=== PATIENT | female | born 1955 | race American Indian/Alaskan Native ===

== ENCOUNTER 2016-11-01 12:26 | Outpatient (CLI) | payer BC ==
[2016-11-01 12:48] LABS: Basophils % (Auto) 0.5 % (0.0-1.8); Eosinophils % (Auto) 4.2 % (0.0-4.3); Hemoglobin 11.6 gm/dl (10.1-14.3); Mean Corpuscular HGB Conc 32 % (30-34); Mean Corpuscular Hemoglobin 27 pg (28-32); Mean Corpuscular Volume 85 fl (79-97); Platelet Count 158 K/mm3 (140-440); Red Blood Count 4.23 M/mm3 (3.65-5.03); Red Cell Distribution Width 14.8 % (13.2-15.2); White Blood Count 5.5 K/mm3 (4.5-11.0)
[2016-11-01 13:13] LABS: Alanine Aminotransferase 20 units/L (7-56); Albumin 4.1 g/dL (3.9-5); Albumin/Globulin Ratio 1.6 %; Alkaline Phosphatase 79 units/L (35-129); BUN/Creatinine Ratio 18.88; Bilirubin,Total 0.3 mg/dL (0.1-1.2); Blood Urea Nitrogen 17 mg/dL (7-17); Carbon Dioxide 26 mmol/L (22-30); Chloride 105.5 mmol/L (98-107); Glucose 141 mg/dL (65-100); Potassium 4.4 mmol/L (3.6-5.0); Sodium 146 mmol/L (137-145); Total Protein 6.6 g/dL (6.3-8.2)
[2016-11-01 13:14] LABS: Anion Gap 19 mmol/L
[2016-11-01 13:32] LABS: Cholesterol 161 mg/dL (50-199); HDL Cholesterol 42 mg/dL (40-59); LDL Cholesterol,Direct 89 mg/dL (50-130); Triglycerides 150 mg/dL (2-149)
--- NOTE | 2016-11-01 13:45 | XRay Report ---
RIGHT CLAVICLE: The bony architecture is intact without evidence of fracture or dislocation. No significant soft tissue abnormality is seen. IMPRESSION: Normal right clavicle.
== END 2016-11-01 12:27 | disposition home or self-care (01) ==
LOC: XRAY 12:26
PROVIDERS: ATTEND Internal Medicine
DX: E11.9 Type 2 diabetes mellitus without complications (principal); I10 Essential (primary) hypertension; M95.8 Other specified acquired deformities of musculoskeletal system; E78.5 Hyperlipidemia, unspecified
CPT/HCPCS: 36415; 80053; 80061; 82043; 85025

== ENCOUNTER 2016-12-25 16:44 | Outpatient (CLI) | payer BC ==
--- NOTE | 2016-12-26 07:54 | Magnetic Resonance Report ---
MRI LUMBAR SPINE WITHOUT CONTRAST HISTORY: Back pain, lumbar radiculopathy. TECHNIQUE: axial T1, T2. sagittal T1,T2, STIR. COMPARISON: 09/07/10. FINDINGS: The conus terminates at T12. No signal abnormality or mass. The cauda equina is within normal limits. 2-3 mm anterolisthesis of L3 with respect to L4 is unchanged. The remaining lumbar vertebra are normal in alignment. The posterior elements are in appropriate relationship. Mild disc desiccation and narrowing at the lowest 3 levels and mild diffuse facet arthropathy are again noted and not significantly changed. The paraspinal soft tissues are unremarkable. L1-2: No significant abnormality. L2-3: No significant abnormality. L3-4: Mild diffuse posterior bulging disc is again identified. No annular tear or herniation. Mild hypertrophy ligamentum flavum and moderate facet hypertrophy is again noted. This results in mild to moderate central canal narrowing measuring 7 mm in AP dimension. Bilateral neural foraminal narrowing is estimated at 25%. No high-grade neural foraminal stenosis. L4-5: A mild diffuse posterior bulging disc is identified. Focal midline annular tear is again noted and unchanged. No herniation. There is borderline central canal narrowing measuring 9.1 mm in AP dimension. Less than 25% bilateral neural foraminal narrowing. L5-S1: A mild diffuse posterior bulging disc is identified. Focal midline annular tear is again noted and unchanged. No herniation or central canal stenosis. No high-grade neural foraminal narrowing. IMPRESSION: Lumbar spondylosis as outlined above. There is perhaps minimal progression of degenerative change at the lowest 3 levels when comparing to the exam from 2009. No new acute process is appreciated.
== END 2016-12-25 16:45 | disposition home or self-care (01) ==
LOC: MRI 16:44
PROVIDERS: ATTEND Orthopaedic Surgery
DX: M54.16 Radiculopathy, lumbar region (principal)
CPT/HCPCS: 72148

== ENCOUNTER 2017-03-19 10:12 | Outpatient (CLI) | payer BC ==
--- NOTE | 2017-03-19 11:09 | Mammography Report ---
Bilateral mammogram: No previous studies available. CAD study utilized. Findings: Predominance of adipose tissue bilaterally. No mass or microcalcification. Focal dense asymmetry measuring 3 mm in diameter subareolar area left breast. Normal axilla. Impression: Focal dense asymmetry subareolar area left breast. Recommend spot magnification and if necessary sonographic examination. BI-RADS CATEGORY: 0 = Needs additional imaging evaluation ACR BI-RADS MAMMOGRAPHIC CODES: 0 = Needs additional imaging evaluation; 1 = Negative; 2 = Benign; 3 = Probably benign; 4 = Suspicious; 5 = Malignant; 6 = Known biopsy-proven malignancy COMMENT: 1. Dense breast tissue, i.e., adenosis, fibrocystic changes, etc., may obscure an underlying neoplasm. 2. Approximately 10% of cancers are not detected with mammography. 3. A negative mammography report should not delay biopsy if a clinically suspicious mass is present. COMMENT: Patient follow-up letters are generated in [employer].
== END 2017-03-19 10:13 | disposition home or self-care (01) ==
LOC: MAMMO 10:12
PROVIDERS: ATTEND Internal Medicine
DX: Z12.31 Encounter for screening mammogram for malignant neoplasm of breast (principal)
CPT/HCPCS: 77067; G0202

== ENCOUNTER 2017-04-09 11:46 | Outpatient (CLI) | payer BC ==
--- NOTE | 2017-04-09 12:31 | Mammography Report ---
Spot compression magnification of the focal asymmetry subareolar area left breast: Findings: There is complete effacement noted of the density seen on mammogram. No mass is identified. No microcalcification. Impression: Benign findings. Annual followup with mammogram recommended. BI-RADS CATEGORY: 2 = Benign ACR BI-RADS MAMMOGRAPHIC CODES: 0 = Needs additional imaging evaluation; 1 = Negative; 2 = Benign; 3 = Probably benign; 4 = Suspicious; 5 = Malignant; 6 = Known biopsy-proven malignancy COMMENT: 1. Dense breast tissue, i.e., adenosis, fibrocystic changes, etc., may obscure an underlying neoplasm. 2. Approximately 10% of cancers are not detected with mammography. 3. A negative mammography report should not delay biopsy if a clinically suspicious mass is present.
== END 2017-04-09 11:47 | disposition home or self-care (01) ==
LOC: MAMMO 11:46
PROVIDERS: ATTEND Internal Medicine
DX: R92.8 Other abnormal and inconclusive findings on diagnostic imaging of breast (principal); I10 Essential (primary) hypertension
CPT/HCPCS: G0206-LT

== ENCOUNTER 2017-06-28 09:11 | Outpatient (CLI) | payer BC ==
[2017-06-28 10:06] LABS: Alanine Aminotransferase 16 units/L (7-56); Albumin 4.2 g/dL (3.9-5); Albumin/Globulin Ratio 1.2 %; Alkaline Phosphatase 77 units/L (35-129); Anion Gap 19 mmol/L; Blood Urea Nitrogen 17 mg/dL (7-17); Calcium 9.1 mg/dL (8.4-10.2); Carbon Dioxide 25 mmol/L (22-30); Chloride 104.8 mmol/L (98-107); Glucose 161 mg/dL (65-100); Potassium 4.1 mmol/L (3.6-5.0); Sodium 145 mmol/L (137-145); Total Protein 7.6 g/dL (6.3-8.2)
== END 2017-06-28 09:12 | disposition home or self-care (01) ==
LOC: LAB 09:11
PROVIDERS: ATTEND Internal Medicine
DX: I10 Essential (primary) hypertension (principal)
CPT/HCPCS: 36415; 80053

== ENCOUNTER 2017-09-17 06:28 | Day surgery (SDC) | payer BC ==
[~2017-09-17 06:28] MED LIST: BSS ONE; TOBRADEX ONE
[2017-09-17] MEDS ORDERED: DUOVISC VISCOELASTIC INTRAOCULA ONE (07:00)
[2017-09-17] MEDS ORDERED: MYDRIACYL OU ONE (07:37)
[2017-09-17] MEDS ORDERED: CYCLOGYL OD ONE (07:37)
[2017-09-17 07:46] VITALS: BP 124/91
[2017-09-17] MEDS: MYDRIACYL OU SCH ×3 (08:00→08:10)
[2017-09-17] MEDS: NEOFRIN OU SCH ×3 (08:00→08:10)
[2017-09-17] MEDS: VIGAMOX OU SCH ×3 (08:00→08:10)
[2017-09-17] MEDS: CYCLOGYL OD SCH ×3 (08:00→08:10)
--- NOTE | 2017-09-17 08:23 | Anesthesia Day of Surgery ---
Anesthesia Day of Surgery - Day of Surgery Patient Examined: Yes Patient H&P Reviewed: Yes Patient is NPO: Yes Beta Blockers: Yes (on schedule)
--- NOTE | 2017-09-17 08:23 | Anesthesia Consultation ---
Anesthesia Consult and Med Hx Date of service: 09/17/17 - Airway Anesthetic Teeth Evaluation: Good ROM Head & Neck: Adequate Mental/Hyoid Distance: Adequate Mallampati Class: Class II Intubation Access Assessment: Probably Good - Pulmonary Exam CTA: Yes - Cardiac Exam Cardiac Exam: RRR - Pre-Operative Health Status ASA Pre-Surgery Classification: ASA3 Proposed Anesthetic Plan: MAC - Pre-Anesthesia Comment Pre-Anesthesia Comments: hypercholesterolemia - Pulmonary Hx Asthma: Yes - Cardiovascular System Hx Hypertension: Yes (OVER 15Y) Hx Cardia Arrhythmia: Yes (paroxysmal A fib) - Central Nervous System Hx Back Pain: Yes - Endocrine Hx Non-Insulin Dependent Diabetes: Yes - Hematic Hx Sickle Cell Disease: Yes (TRAIT) - Other Systems Hx Cancer: No - Additional Comments Anesthesia Medical History Comments: H/O DVT
[2017-09-17] MEDS ORDERED: MARCAINE 0.5% 30 ML INFILTRATI ONE (09:16)
== END 2017-09-17 06:29 | disposition home or self-care (01) ==
LOC: OR 06:28
PROVIDERS: ATTEND Specialist
DX: H26.9 Unspecified cataract (principal); Z53.9 Procedure and treatment not carried out, unspecified reason; K21.9 Gastro-esophageal reflux disease without esophagitis; E11.9 Type 2 diabetes mellitus without complications; I10 Essential (primary) hypertension; E78.00 Pure hypercholesterolemia, unspecified; I48.0 Paroxysmal atrial fibrillation; J45.909 Unspecified asthma, uncomplicated; Z98.49 Cataract extraction status, unspecified eye; Z86.718 Personal history of other venous thrombosis and embolism; Z90.710 Acquired absence of both cervix and uterus; Z98.890 Other specified postprocedural states; Z96.611 Presence of right artificial shoulder joint
CPT/HCPCS: 82962

== ENCOUNTER 2017-10-01 07:56 | Outpatient (CLI) | payer BC ==
[2017-10-01] MEDS ORDERED: LEXISCAN IV ONE ×2 (12:28→13:00)
[2017-10-01 14:02] VITALS: BP 167/98
--- NOTE | 2017-10-02 07:03 | Treadmill Report ---
THALLIUM STRESS TEST LEFT VENTRICLE: Left ventricular chamber size is within normal spread. Perfusion study demonstrates homogeneous uptake of the tracer in all segments, no significant perfusion defects identified. Gated analysis demonstrates normal left ventricular systolic function, ejection fraction greater than 70%. CONCLUSION: Normal myocardial perfusion study. JOB# [id number] CA/NTS
--- NOTE | 2017-10-03 08:04 | Vascular Lab Report ---
CAROTID DUPLEX STUDY: RIGHT PSVEDV CCA [id number] CCA DIST:[id number] ICA PROX:[id number] ICA MID:6828 ICA DIST:[id number] ECA: 50 VERT: 24 10 LEFT PSVEDV CCA PROX:[id number] CCA DIST:7123 ICA PROX:7527 ICA MID:7234 ICA DIST:7820 ECA: 63 VERT: 40 17 REASON FOR EXAM: Carotid artery stenosis. COMMENTS ON THE RIGHT: Doppler frequency analysis is consistent with 16 to 49 percent diameter reduction of the internal carotid artery. Minimal amount of plaque is seen. The common carotid artery is patent. The external carotid artery is patent. The vertebral artery has antegrade flow. COMMENTS ON THE LEFT: Doppler frequency analysis is consistent with 16 to 49 percent diameter reduction of the internal carotid artery. Minimal amount of plaque is seen. The common carotid artery is patent. The external carotid artery is patent. The vertebral artery has antegrade flow. IMPRESSION: Less than 50% diameter reduction in the internal carotid arteries bilaterally. Consider repeat carotid artery duplex in 12 months.
== END 2017-10-01 07:57 | disposition home or self-care (01) ==
LOC: ECHO 07:56
PROVIDERS: ATTEND Internal Medicine Cardiovascular Disease
DX: I48.0 Paroxysmal atrial fibrillation (principal); R00.2 Palpitations; R00.0 Tachycardia, unspecified; R09.89 Other specified symptoms and signs involving the circulatory and respiratory systems
CPT/HCPCS: 78452; 93017; 93306; 93880; A9502; J2785

== ENCOUNTER 2017-11-21 09:21 | Day surgery (SDC) | payer BC ==
[~2017-11-21 09:21] MED LIST changes: -BSS ONE; +TETRACAINE 0.5% OS PRN; -TOBRADEX ONE
--- NOTE | 2017-11-21 11:14 | Anesthesia Day of Surgery ---
Anesthesia Day of Surgery - Day of Surgery Patient Examined: Yes Patient H&P Reviewed: Yes Patient is NPO: Yes Beta Blockers: Yes
--- NOTE | 2017-11-21 11:14 | Anesthesia Consultation ---
Anesthesia Consult and Med Hx Date of service: 11/21/17 - Airway Anesthetic Teeth Evaluation: Good ROM Head & Neck: Adequate Mental/Hyoid Distance: Adequate Mallampati Class: Class II Intubation Access Assessment: Probably Good - Pulmonary Exam CTA: Yes - Cardiac Exam Cardiac Exam: RRR - Pre-Operative Health Status ASA Pre-Surgery Classification: ASA3 Proposed Anesthetic Plan: MAC - Pulmonary Hx Asthma: Yes - Cardiovascular System Hx Hypertension: Yes (OVER 15Y) Hx Cardia Arrhythmia: Yes (paroxysmal A fib) - Central Nervous System Hx Back Pain: Yes Hx Psychiatric Problems: No - Endocrine Hx Non-Insulin Dependent Diabetes: Yes - Hematic Hx Sickle Cell Disease: Yes (TRAIT) - Other Systems Hx Alcohol Use: No Hx Substance Use: No Hx Cancer: No - Additional Comments Anesthesia Medical History Comments: Informed consent obtained
[2017-11-21] MEDS ORDERED: NACL BACTERIOSTATIC INFILTRATI ONE (11:39)
[2017-11-21] MEDS: AK-Dilate OS SCH ×3 (11:40→11:50)
[2017-11-21] MEDS: VIGAMOX OS SCH ×3 (11:40→11:50)
[2017-11-21] MEDS: MYDRIACYL OS SCH ×3 (11:40→11:50)
[2017-11-21] MEDS ORDERED: WATER FOR IRRIG STERILE IR ONE (12:10)
[2017-11-21] MEDS ORDERED: SUBLIMAZE ONE (12:15)
[2017-11-21] MEDS ORDERED: VERSED ONE (12:16)
--- NOTE | 2017-11-21 12:47 | Operative Report ---
Operative Report Operative Report: PATIENT'S NAME: DATE OF : DATE OF SURGERY: 11/21/2017 PREOPERATIVE DIAGNOSIS: Cataract left eye POSTOPERATIVE DIAGNOSIS: Same OPERATIVE PROCEDURE: Phacoemulsification with intraocular lens implantation, left eye SURGEON: Pallavi Walker M.D. VP OF DIGITAL MARKETING SURGEON: Mal Lens: Crystalens AO2UV 13.5 D ANESTHESIA: Monitored anesthesia care in combination with topical and intracameral anesthesia because of the established specific risk of reflux, arrhythmias, or anxiety attacks associated with ocular manipulation, as well as the difficulty of the mission commander to manage such potentially catastrophic events while simultaneously attempting to complete the surgical procedure and was deemed necessary for the patient's safety to have an Aerial Photograph Interpreter present during the procedure whenever possible. An Aerial Photograph Interpreter was utilized to regulate the intravenous sedation of the patient so the patient was cooperative yet not asleep in order for the patient to successfully maintain fixation of the eye on the operating light of the microscope. COMPLICATIONS: No surgical complications No blood loss. ALLERGIES: Tapentadol tramadol codeine PROGNOSIS: Excellent INDICATIONS FOR SURGERY: The patient is undergoing surgery in the hopes of eliminating or improving these visual difficulties. PROCEDURE: After arriving at the surgery center, the patient was given topical anesthetic and dilating drops, as noted in the record. The patient was then taken into the operating room and given more anesthetic drops. The eyelids , lashes, and lid margins were scrubbed with Betadine solution, and the patient was draped. The Nurse Aerial Photograph Interpreter administered IV sedation and monitored the patient during the procedure. The eye was then fixated with a 0.12, and a stab incision was made in the peripheral clear cornea into the anterior chamber. This was made on my left side. Viscoelastic was next used to fill the anterior chamber. The eye was once again fixated with the 0.12 forceps and a keratome was used make an incision in clear cornea peripherally on my right hand side temporally. The capsule forceps were used to open the central anterior capsule and then make a continuous round capsulotomy. Hydrodissection was carried out utilizing a cannula and balanced salt solution to delineate the cortical material from the capsule and the nucleus from the cortical material. The phaco tip was introduced into the eye and used to remove the anterior cortical material in the area of the capsulotomy. Then the phaco tip was buried into the nucleus, and a chopping instrument was introduced into the eye and used to provide countertraction in the nucleus between this instrument and the phaco tip fracturing the nucleus. This procedure was repeated multiple times, providing multiple small segments of the lens, and then the phaco tip was used to remove each of these segments. An I/A tip was then used to remove the remaining cortex. The anterior chamber was refilled with viscoelastic. An one-piece, acrylic intraocular lens was then placed into an inserting cartridge. The tip of the inserting cartridge was introduced into the keratome incision and into the anterior chamber. The implant was gently advanced through the cartridge and into the eye, where it unfolded, and both haptics were placed in the capsular bag, where it centered nicely and appeared to be well fixated. After placement of the intraocular lens, the I~and~A handpiece was placed back into the eye and used to remove the viscoelastic, including viscoelastic that was behind the optic of the intraocular lens. The anterior chamber was then filled with balanced salt solution, and hydration of the wound was used to cause swelling of the wound and more appropriate watertight closure. When the wound was found to be firm, the patient was asked to comment on how bright the light was. If there was no light perception at all or if the light was substantially dimmer than during the rest of the surgery, the amount of fluid in the eye was decompressed to lower the intraocular pressure until the patient could see the bright light again. This was done to avoid any damage or decreased blood flow to the optic nerve. MEDICATIONS APPLIED AT END OF SURGERY: One drop of Pred Forte and Vigamox The patient was given a shield to wear at night and was instructed not to rub or push on the eye. DISCHARGE SUMMARY: The patient was released in stable condition. The patient and those with the patient were given a written sheet of postoperative instructions and counseling on any abnormal laboratory studies. The patient is to see us tomorrow for follow-up in the office and is to call immediately for any difficulties. Pallavi Walker M.D. Date
--- NOTE | 2017-11-21 12:48 | Short Stay Summary ---
Short Stay Documentation Date of service: 11/21/17 - History H&P: obtained from office - Allergies and Medications Current Medications: Allergies tapentadol HCl [From Nucynta] Allergy (Verified 11/19/17 14:33) Itching tramadol HCl [From Ultram] Allergy (Verified 11/19/17 14:33) Itching codeine Adverse Reaction (Verified 11/19/17 14:33) Itching Home Medications Medication Instructions Recorded Confirmed Last Taken Type Furosemide [Lasix TAB] 20 mg PO DAILY 09/16/17 11/21/17 11/20/17 History Losartan Potassium [Losartan 50 mg PO DAILY 09/16/17 11/21/17 11/20/17 History Potassium] Metoprolol Succinate [Toprol Xl] 25 mg PO QHS 09/16/17 11/21/17 11/20/17 22:00 History PARoxetine [Paxil] 10 mg PO QHS 09/16/17 11/21/17 11/20/17 History Simvastatin [Simvastatin] 40 mg PO QHS 09/16/17 11/21/17 11/20/17 History Sitagliptin Phosphate [Januvia] 100 mg PO DAILY 09/16/17 11/21/17 11/20/17 History glyBURIDE [Glyburide] 5 mg PO BID 09/16/17 11/21/17 11/20/17 History metFORMIN [Glucophage] 500 mg PO BID 09/16/17 11/21/17 11/20/17 History Aspirin 325 mg PO QDAY 11/21/17 11/21/17 11/20/17 History Esomeprazole Magnesium [Nexium] 40 mg PO QHS 11/21/17 11/21/17 11/20/17 History Active Medications Moxifloxacin HCl (Vigamox) 1 drops OS Q5MIN [facility] Stop: 11/23/17 06:01 Last Admin: 11/21/17 11:50 Dose: 1 drops Phenylephrine HCl (Ak-Dilate) 1 drops OS Q5MIN [facility] Stop: 11/23/17 06:01 Last Admin: 11/21/17 11:50 Dose: 1 drops Prednisolone Acetate (Pred Forte 1%) 1 drops OS QID [facility] Tetracaine HCl (Tetracaine 0.5%) 1 drops OS Q5M PRN PRN Reason: Analgesia Last Admin: 11/21/17 11:37 Dose: 1 drops Tropicamide (Mydriacyl) 1 drops OS Q5MIN [facility] Stop: 11/23/17 06:01 Last Admin: 11/21/17 11:50 Dose: 1 drops - Brief post op/procedure progress note Date of procedure: 11/21/17 Pre-op diagnosis: cataract left eye Post-op diagnosis: same Procedure: Phacoemulsification with intraocular lens insertion left eye Anesthesia: MAC, local Surgeon: MIRACLE MACKEY Estimated blood loss: none Pathology: none Condition: stable - Disposition Condition at discharge: Good Disposition: DC-01 TO HOME OR SELFCARE - Discharge Diagnoses (1) Cataract Status: Resolved Qualifiers: Cataract type: age-related Age-related cataract type: nuclear Laterality : left Qualified Code(s): H25.12 - Age-related nuclear cataract, left eye Short Stay Discharge Plan Follow up with: TAD DAVIS MD [Primary Care Provider] - 7 Days
--- NOTE | 2017-11-21 13:46 | Post Anesthesia Evaluation ---
- Post Anesthesia Evaluation Patient Participated: Yes Airway Patent: Yes Stable Respiratory Function: Yes Nausea/Vomiting: No Temp > 96.8F: Yes Pain Manageable: Yes Adequeate Hydration: Yes Anesthesia Complications: No
[2017-11-21] MEDS ORDERED: PRED FORTE 1% OS SCH (14:00)
[2017-11-21 14:43] VITALS: BP 135/85
== END 2017-11-21 13:35 | disposition home or self-care (01) ==
LOC: OR 09:21
DX: E11.36 Type 2 diabetes mellitus with diabetic cataract (principal); I10 Essential (primary) hypertension; I48.0 Paroxysmal atrial fibrillation; K21.9 Gastro-esophageal reflux disease without esophagitis; D57.3 Sickle-cell trait; E78.00 Pure hypercholesterolemia, unspecified; M19.90 Unspecified osteoarthritis, unspecified site; J45.909 Unspecified asthma, uncomplicated; Z88.5 Allergy status to narcotic agent; Z79.899 Other long term (current) drug therapy; Z79.84 Long term (current) use of oral hypoglycemic drugs; Z86.718 Personal history of other venous thrombosis and embolism; Z79.01 Long term (current) use of anticoagulants; Z86.711 Personal history of pulmonary embolism; Z90.710 Acquired absence of both cervix and uterus; Z98.890 Other specified postprocedural states
CPT/HCPCS: 66984; 82962; J2250; J3010; V2632

== ENCOUNTER 2017-12-19 07:57 | Day surgery (SDC) | payer BC ==
[~2017-12-19 07:57] MED LIST changes: +TETRACAINE 0.5% OD PRN; -TETRACAINE 0.5% OS PRN; +VIGAMOX OD SCH
[2017-12-19] MEDS: VIGAMOX OD SCH ×3 (10:00→10:10)
[2017-12-19] MEDS: MYDRIACYL OD SCH ×3 (10:00→10:10)
[2017-12-19] MEDS: AK-Dilate OD SCH ×4 (10:00→10:10)
[2017-12-19] MEDS ORDERED: VERSED ONE (11:05)
[2017-12-19] MEDS ORDERED: SUBLIMAZE ONE (11:09)
--- NOTE | 2017-12-19 11:14 | Anesthesia Day of Surgery ---
Anesthesia Day of Surgery - Day of Surgery Patient Examined: Yes Patient H&P Reviewed: Yes Patient is NPO: Yes
--- NOTE | 2017-12-19 11:15 | Anesthesia Consultation ---
Anesthesia Consult and Med Hx Date of service: 12/19/17 - Airway Anesthetic Teeth Evaluation: Good ROM Head & Neck: Adequate Mental/Hyoid Distance: Adequate Mallampati Class: Class III Intubation Access Assessment: Probably Good - Pulmonary Exam CTA: Yes - Cardiac Exam Cardiac Exam: RRR - Pre-Operative Health Status ASA Pre-Surgery Classification: ASA3 Proposed Anesthetic Plan: MAC - Pulmonary Hx Asthma: Yes - Cardiovascular System Hx Hypertension: Yes (OVER 15Y. HL) Hx Cardia Arrhythmia: Yes (paroxysmal A fib) - Central Nervous System Hx Back Pain: Yes (chronic pain) Hx Psychiatric Problems: No - Gastrointestinal Hx Gastroesophageal Reflux Disease: Yes - Endocrine Hx Non-Insulin Dependent Diabetes: Yes - Hematic Hx Sickle Cell Disease: Yes (TRAIT) - Other Systems Hx Alcohol Use: No Hx Substance Use: No Hx Cancer: No - Additional Comments Anesthesia Medical History Comments: OA
[2017-12-19] MEDS ORDERED: DIAMOX PO ONE (11:53)
[2017-12-19] MEDS ORDERED: PRED FORTE 1% ONE (11:58)
[2017-12-19 12:34] VITALS: BP 150/96
--- NOTE | 2017-12-19 13:18 | Operative Report ---
Operative Report Operative Report: PATIENT'S NAME: DATE OF : DATE OF SURGERY: 12/19/2017 PREOPERATIVE DIAGNOSIS: Cataract right eye POSTOPERATIVE DIAGNOSIS: Same OPERATIVE PROCEDURE: Phacoemulsification with intraocular lens implantation, right eye SURGEON: Pallavi Walker M.D. CENTRAL SUPPLY SUPERVISOR SURGEON: Mal Lens: FABIANO A02UV 14.0 D ANESTHESIA: Monitored anesthesia care in combination with topical and intracameral anesthesia because of the established specific risk of reflux, arrhythmias, or anxiety attacks associated with ocular manipulation, as well as the difficulty of the applied anthropologist to manage such potentially catastrophic events while simultaneously attempting to complete the surgical procedure and was deemed necessary for the patient's safety to have an Bi Data Modeler present during the procedure whenever possible. An Bi Data Modeler was utilized to regulate the intravenous sedation of the patient so the patient was cooperative yet not asleep in order for the patient to successfully maintain fixation of the eye on the operating light of the microscope. COMPLICATIONS: No surgical complications No blood loss. ALLERGIES: TAPentothal tramadol codeine PROGNOSIS: Excellent INDICATIONS FOR SURGERY: The patient is undergoing surgery in the hopes of eliminating or improving these visual difficulties. PROCEDURE: After arriving at the surgery center, the patient was given topical anesthetic and dilating drops, as noted in the record. The patient was then taken into the operating room and given more anesthetic drops. The eyelids , lashes, and lid margins were scrubbed with Betadine solution, and the patient was draped. The Nurse Bi Data Modeler administered IV sedation and monitored the patient during the procedure. The eye was then fixated with a 0.12, and a stab incision was made in the peripheral clear cornea into the anterior chamber. This was made on my left side. Viscoelastic was next used to fill the anterior chamber. The eye was once again fixated with the 0.12 forceps and a keratome was used make an incision in clear cornea peripherally on my right hand side temporally. The capsule forceps were used to open the central anterior capsule and then make a continuous round capsulotomy. Hydrodissection was carried out utilizing a cannula and balanced salt solution to delineate the cortical material from the capsule and the nucleus from the cortical material. The phaco tip was introduced into the eye and used to remove the anterior cortical material in the area of the capsulotomy. Then the phaco tip was buried into the nucleus, and a chopping instrument was introduced into the eye and used to provide countertraction in the nucleus between this instrument and the phaco tip fracturing the nucleus. This procedure was repeated multiple times, providing multiple small segments of the lens, and then the phaco tip was used to remove each of these segments. An I/A tip was then used to remove the remaining cortex. The anterior chamber was refilled with viscoelastic. An one-piece, acrylic intraocular lens was then placed into an inserting cartridge. The tip of the inserting cartridge was introduced into the keratome incision and into the anterior chamber. The implant was gently advanced through the cartridge and into the eye, where it unfolded, and both haptics were placed in the capsular bag, where it centered nicely and appeared to be well fixated. After placement of the intraocular lens, the I~and~A handpiece was placed back into the eye and used to remove the viscoelastic, including viscoelastic that was behind the optic of the intraocular lens. The anterior chamber was then filled with balanced salt solution, and hydration of the wound was used to cause swelling of the wound and more appropriate watertight closure. When the wound was found to be firm, the patient was asked to comment on how bright the light was. If there was no light perception at all or if the light was substantially dimmer than during the rest of the surgery, the amount of fluid in the eye was decompressed to lower the intraocular pressure until the patient could see the bright light again. This was done to avoid any damage or decreased blood flow to the optic nerve. MEDICATIONS APPLIED AT END OF SURGERY: One drop of Pred Forte and Vigamox The patient was given a shield to wear at night and was instructed not to rub or push on the eye. DISCHARGE SUMMARY: The patient was released in stable condition. The patient and those with the patient were given a written sheet of postoperative instructions and counseling on any abnormal laboratory studies. The patient is to see us tomorrow for follow-up in the office and is to call immediately for any difficulties. Pallavi Walker M.D. Date
--- NOTE | 2017-12-19 13:19 | Short Stay Summary ---
Short Stay Documentation Date of service: 12/19/17 - History H&P: obtained from office - Allergies and Medications Current Medications: Allergies tapentadol HCl [From Nucynta] Allergy (Verified 12/18/17 13:27) Itching tramadol HCl [From Ultram] Allergy (Verified 12/18/17 13:27) Itching codeine Adverse Reaction (Verified 12/18/17 13:27) Itching Home Medications Medication Instructions Recorded Confirmed Last Taken Type Furosemide [Lasix TAB] 20 mg PO DAILY 09/16/17 12/19/17 12/18/17 History Losartan Potassium [Losartan 50 mg PO DAILY 09/16/17 12/19/17 12/18/17 History Potassium] Metoprolol Succinate [Toprol Xl] 25 mg PO QHS 09/16/17 12/19/17 12/18/17 History PARoxetine [Paxil] 10 mg PO QHS 09/16/17 12/19/17 12/18/17 History Simvastatin [Simvastatin] 40 mg PO QHS 09/16/17 12/19/17 12/18/17 History Sitagliptin Phosphate [Januvia] 100 mg PO DAILY 09/16/17 12/19/17 12/18/17 History glyBURIDE [Glyburide] 5 mg PO BID 09/16/17 12/19/17 12/18/17 History metFORMIN [Glucophage] 500 mg PO BID 09/16/17 12/19/17 12/18/17 History Aspirin 325 mg PO QDAY 11/21/17 12/19/17 12/18/17 History Esomeprazole Magnesium [Nexium] 40 mg PO QHS 11/21/17 12/19/17 12/18/17 History Active Medications Moxifloxacin HCl (Vigamox) 1 drops OD Q5MIN [facility] Stop: 12/21/17 10:01 Last Admin: 12/19/17 10:10 Dose: 1 drops Phenylephrine HCl (Ak-Dilate) 1 drops OD Q5MIN [facility] Stop: 12/19/17 23:59 Last Admin: 12/19/17 10:10 Dose: 1 drops Prednisolone Acetate (Pred Forte 1%) 1 drops OU QID [facility] Last Admin: 12/19/17 12:13 Dose: 1 drops Tetracaine HCl (Tetracaine 0.5%) 1 drops OD Q5M PRN PRN Reason: Analgesia Stop: 12/19/17 23:59 Last Admin: 12/19/17 10:00 Dose: 1 drops Tropicamide (Mydriacyl) 1 drops OD Q5MIN [facility] Stop: 12/19/17 23:59 Last Admin: 12/19/17 10:10 Dose: 1 drops - Brief post op/procedure progress note Date of procedure: 12/19/17 Pre-op diagnosis: right cataract Post-op diagnosis: same Procedure: Phacoemulsification with intraocular lens insertion right eye Anesthesia: MAC, local Surgeon: MIRACLE MACKEY Estimated blood loss: none Pathology: none Condition: stable - Disposition Condition at discharge: Good Disposition: DC-01 TO HOME OR SELFCARE - Discharge Diagnoses (1) Cataract Status: Resolved Qualifiers: Cataract type: age-related Age-related cataract type: nuclear Laterality : right Qualified Code(s): H25.11 - Age-related nuclear cataract, right eye Short Stay Discharge Plan Follow up with: TAD DAVIS MD [Primary Care Provider] - 7 Days Forms: [facility]
[2017-12-19] MEDS ORDERED: PRED FORTE 1% OU SCH (14:00)
== END 2017-12-19 07:58 | disposition home or self-care (01) ==
LOC: OR 07:57
DX: E11.36 Type 2 diabetes mellitus with diabetic cataract (principal); I48.91 Unspecified atrial fibrillation; I10 Essential (primary) hypertension; K21.9 Gastro-esophageal reflux disease without esophagitis; J45.909 Unspecified asthma, uncomplicated; D57.3 Sickle-cell trait; Z88.5 Allergy status to narcotic agent; Z88.8 Allergy status to other drugs, medicaments and biological substances; Z79.899 Other long term (current) drug therapy; Z79.82 Long term (current) use of aspirin
CPT/HCPCS: 66984; 82962; J2250; J3010; V2632

== ENCOUNTER 2018-03-20 09:12 | Outpatient (CLI) | payer BC ==
--- NOTE | 2018-03-26 12:51 | Mammography Report ---
BILATERAL DIGITAL SCREENING MAMMOGRAM with CAD : 03/20/18 09:12:00 CLINICAL: Routine screening. COMPARISON:03/19/17 and 03/07/16 FINDINGS: The breasts are heterogeneously dense, which may obscure small masses. No mass, architectural distortion or suspicious calcifications. IMPRESSION: No mammographic evidence of malignancy. BI-RADS CATEGORY: 2 -- Benign RECOMMENDATION: Routine mammographic screening in one year. COMMENT: Patient follow-up letters are generated by our [employer] application.
== END 2018-03-20 09:13 | disposition home or self-care (01) ==
LOC: MAMMO 09:12
PROVIDERS: ATTEND Internal Medicine
DX: Z12.31 Encounter for screening mammogram for malignant neoplasm of breast (principal)
CPT/HCPCS: 77067

== ENCOUNTER 2018-05-07 11:38 | Outpatient (CLI) | payer BC ==
[2018-05-07 11:56] LABS: Basophils % (Auto) 0.6 % (0.0-1.8); Eosinophils # (Auto) 0.2 K/mm3 (0.0-0.4); Eosinophils % (Auto) 4.2 % (0.0-4.3); Hematocrit 35.2 % (30.3-42.9); Hemoglobin 11.8 gm/dl (10.1-14.3); Lymphocytes # (Auto) 2.2 K/mm3 (1.2-5.4); Lymphocytes % (Auto) 37.1 % (13.4-35.0); Mean Corpuscular HGB Conc 33 % (30-34); Mean Corpuscular Hemoglobin 28 pg (28-32); Mean Corpuscular Volume 84 fl (79-97); Monocytes # (Auto) 0.5 K/mm3 (0.0-0.8); Platelet Count 168 K/mm3 (140-440); Red Blood Count 4.17 M/mm3 (3.65-5.03)
[2018-05-07 12:17] LABS: Alanine Aminotransferase 18 units/L (7-56); Albumin 4.1 g/dL (3.9-5); BUN/Creatinine Ratio 21; Blood Urea Nitrogen 21 mg/dL (7-17); Calcium 9.1 mg/dL (8.4-10.2); Chol/HDL Ratio 4.13 %; HDL Cholesterol 37 mg/dL (40-59); Hemolysis Index 7; LDL Cholesterol,Direct 99 mg/dL (50-130)
== END 2018-05-07 11:39 | disposition home or self-care (01) ==
LOC: LAB 11:38
PROVIDERS: ATTEND Internal Medicine
DX: Z00.01 Encounter for general adult medical examination with abnormal findings (principal); E11.40 Type 2 diabetes mellitus with diabetic neuropathy, unspecified; E78.5 Hyperlipidemia, unspecified; J45.909 Unspecified asthma, uncomplicated; I10 Essential (primary) hypertension; E78.00 Pure hypercholesterolemia, unspecified; K21.9 Gastro-esophageal reflux disease without esophagitis; M19.90 Unspecified osteoarthritis, unspecified site; I48.91 Unspecified atrial fibrillation; Z90.710 Acquired absence of both cervix and uterus
CPT/HCPCS: 36415; 80053; 80061; 83036; 85025

== ENCOUNTER 2019-01-02 11:49 | Outpatient (CLI) | payer BC ==
[2019-01-02 12:23] LABS: Basophils % (Auto) 0.5 % (0.0-1.8); Eosinophils # (Auto) 0.2 K/mm3 (0.0-0.4); Eosinophils % (Auto) 3.4 % (0.0-4.3); Hematocrit 35.7 % (30.3-42.9); Hemoglobin 11.8 gm/dl (10.1-14.3); Lymphocytes # (Auto) 1.9 K/mm3 (1.2-5.4); Lymphocytes % (Auto) 34.4 % (13.4-35.0); Mean Corpuscular HGB Conc 33 % (30-34); Mean Corpuscular Volume 86 fl (79-97); Monocytes # (Auto) 0.4 K/mm3 (0.0-0.8); Monocytes % (Auto) 7.3 % (0.0-7.3); Platelet Count 193 K/mm3 (140-440); Red Blood Count 4.18 M/mm3 (3.65-5.03)
[2019-01-02 12:44] LABS: Alanine Aminotransferase 15 units/L (7-56); Albumin 4.4 g/dL (3.9-5); BUN/Creatinine Ratio 15; Blood Urea Nitrogen 12 mg/dL (7-17); Calcium 9.1 mg/dL (8.4-10.2); Hemolysis Index 1; LDL Cholesterol,Direct 93 mg/dL (50-130)
[2019-01-02 13:04] LABS: Chol/HDL Ratio 3.51 %; HDL Cholesterol 41 mg/dL (40-59)
[2019-01-02 13:19] LABS: Microalbumin/Creatinine Ratio 29.2 ug/mg
== END 2019-01-02 11:50 | disposition home or self-care (01) ==
LOC: LAB 11:49
PROVIDERS: ATTEND Internal Medicine
DX: E11.40 Type 2 diabetes mellitus with diabetic neuropathy, unspecified (principal); I10 Essential (primary) hypertension; E78.5 Hyperlipidemia, unspecified; E78.00 Pure hypercholesterolemia, unspecified; J45.909 Unspecified asthma, uncomplicated; M19.90 Unspecified osteoarthritis, unspecified site; Z90.710 Acquired absence of both cervix and uterus
CPT/HCPCS: 36415; 80053; 80061; 82043; 83036; 85025

== ENCOUNTER 2019-01-06 13:34 | Outpatient (CLI) | payer BC ==
--- NOTE | 2019-01-06 19:31 | Magnetic Resonance Report ---
PROCEDURE: MR LUMBAR SPINE WO CON HISTORY: LEFT LUMBAR RADICULOPATHY 724.4 FINDINGS: MRI of the lumbar spine was performed using sagittal T1, sagittal T2, sagittal inversion recovery, ax ial T1, axial T2 weighted images. The conus medullaris lies at the level of T12 and appears unremarkable. At T11-12 there is loss of disc T2 signal intensity. There are no posterior disc abnormalities. At T12-L1 the intervertebral disc is normal in height and T2 signal intensity. There are no posterior disc abnormalities. At L1-L2 there is loss of disc T2 signal intensity. There is a minimal posterior disc bulge which fraser s not result in canal stenosis, significant neural foraminal narrowing or nerve root impingement At L2-L3 there are no posterior disc abnormalities. There is no evidence of central canal stenosis, s ignificant neural foraminal narrowing or nerve root impingement. There is a right-sided posterior dir ected facet synovial cyst, sagittal image 10 approximately 0.6 cm. At L3-L4, there is 0.4 cm degenerative anterolisthesis of L3 on L4. There is severe canal stenosis du e to the anterolisthesis and ligamentum flavum and facet hypertrophy. There is mild bilateral foramin al narrowing without nerve root impingement. At L4-L5 there is loss of disc T2 signal intensity. There is a posterior disc bulge which effaces the anterior margin of the thecal sac but does not result in canal stenosis. There is a posterior annula r fissure in the disc. There is mild bilateral neural foraminal narrowing without nerve root impingem ent. At L5-S1 there is a posterior disc bulge with posterior annular fissure. There is mild bilateral neur al foraminal narrowing without nerve root impingement. IMPRESSION: Severe canal stenosis at L3-L4 due to grade 1 anterolisthesis of L3 on L4 and to ligament um flavum and facet hypertrophy Posterior annular fissures in the L4-5 and L5-S1 discs This document is electronically signed by Toño Vazquez MD., January 06 2019 07:29:22 PM ET
--- NOTE | 2019-01-08 05:52 | Magnetic Resonance Report ---
PROCEDURE: MRI LEFT HIP UNILATERAL WITHOUT CONTRAST TECHNIQUE: Magnetic resonance imaging of the hip LEFT was performed using standard pulse sequences. CPT 21066 HISTORY: Left hip pain COMPARISONS: None . FINDINGS: Fracture line: None . Avascular necrosis: None . Marrow signal: Normal . Joint effusion: None . Joint space: Normal . Hip musculature: Normal . Visualized pelvis: Normal . Soft tissues: Normal . IMPRESSION: There is no hip fracture or dislocation. There is no joint effusion. Soft tissues are un remarkable. . This document is electronically signed by Jorge Rincon MD., January 08 2019 05:49:19 AM ET
== END 2019-01-06 13:35 | disposition home or self-care (01) ==
LOC: MRI 13:34
PROVIDERS: ATTEND Internal Medicine
DX: M51.27 Other intervertebral disc displacement, lumbosacral region (principal); M48.061 Spinal stenosis, lumbar region without neurogenic claudication; Q05.7 Lumbar spina bifida without hydrocephalus; E78.00 Pure hypercholesterolemia, unspecified; I10 Essential (primary) hypertension; J45.909 Unspecified asthma, uncomplicated; K21.9 Gastro-esophageal reflux disease without esophagitis; E11.9 Type 2 diabetes mellitus without complications; M19.90 Unspecified osteoarthritis, unspecified site; Z90.710 Acquired absence of both cervix and uterus
CPT/HCPCS: 72148; 73721

== ENCOUNTER 2019-01-28 12:37 | Outpatient (CLI) | payer BC ==
--- NOTE | 2019-01-28 14:00 | XRay Report ---
Lumbar spine 4 views: History: Pain, spondylolisthesis. Findings: Rotoscoliosis of lumbar spine with convexity to left. Normal height of vertebral bodies. Decrease in height of L3-L4, L4-5 and minimally at L5-S1. There is grade 1 spondylolisthesis noted at L3-L4. No fracture. No soft tissue calcification. Impression: Rotoscoliosis lumbar spine. Degenerative changes lumbar spine with grade 1 spondylolisthesis L3-L4.
== END 2019-01-28 12:38 | disposition home or self-care (01) ==
LOC: XRAY 12:37
PROVIDERS: ATTEND Neurological Surgery
DX: M43.16 Spondylolisthesis, lumbar region (principal); M47.816 Spondylosis without myelopathy or radiculopathy, lumbar region; M41.86 Other forms of scoliosis, lumbar region; E78.00 Pure hypercholesterolemia, unspecified; I10 Essential (primary) hypertension; J45.909 Unspecified asthma, uncomplicated; K21.9 Gastro-esophageal reflux disease without esophagitis; M19.90 Unspecified osteoarthritis, unspecified site; E11.9 Type 2 diabetes mellitus without complications; Z90.710 Acquired absence of both cervix and uterus
CPT/HCPCS: 72110

== ENCOUNTER 2019-03-12 13:00 | Inpatient (IN) | payer BC ==
[2019-03-04 09:57] LABS: Basophils % (Auto) 0.3 % (0.0-1.8); Eosinophils # (Auto) 0.2 K/mm3 (0.0-0.4); Eosinophils % (Auto) 2.9 % (0.0-4.3); Hematocrit 35.7 % (30.3-42.9); Hemoglobin 11.8 gm/dl (10.1-14.3); Lymphocytes # (Auto) 1.8 K/mm3 (1.2-5.4); Lymphocytes % (Auto) 31.1 % (13.4-35.0); Mean Corpuscular HGB Conc 33 % (30-34); Mean Corpuscular Volume 84 fl (79-97); Monocytes # (Auto) 0.5 K/mm3 (0.0-0.8); Monocytes % (Auto) 8.1 % (0.0-7.3); Platelet Count 176 K/mm3 (140-440); Red Blood Count 4.24 M/mm3 (3.65-5.03); Red Cell Distribution Width 15.3 % (13.2-15.2)
--- NOTE | 2019-03-04 10:09 | Anesthesia Consultation ---
Anesthesia Consult and Med Hx - Airway Anesthetic Teeth Evaluation: Good Mental/Hyoid Distance: Adequate Mallampati Class: Class II Intubation Access Assessment: Good - Pulmonary Exam CTA: Yes - Cardiac Exam Cardiac Exam: RRR - Pre-Operative Health Status ASA Pre-Surgery Classification: ASA3 Proposed Anesthetic Plan: General (patient with hx of paraxysmal Afib, DM, HTN, patient will get pre operative clearance from her director engineering concerning her Afib) - Pulmonary Hx Smoking: No Hx Asthma: Yes (NO MEDS) Hx Sleep Apnea: No (FREYA PRE SCREEN LOW RISK.) - Cardiovascular System Hx Hypertension: Yes (X 16 YRS) Hx Cardia Arrhythmia: Yes (paroxysmal A fib) - Central Nervous System Hx Back Pain: Yes (WITH LEFT HIP/LEG PAIN AND WEAKNESS) Hx Psychiatric Problems: No - Gastrointestinal Hx Gastroesophageal Reflux Disease: Yes - Endocrine Hx Non-Insulin Dependent Diabetes: Yes - Hematic Hx Anemia: Yes (NOT RECENT) Hx Sickle Cell Disease: No (SC TRAIT ONLY) - Other Systems Hx Alcohol Use: No Hx Substance Use: No Hx Cancer: No - Additional Comments Anesthesia Medical History Comments: Patient with hx of paraxysmal Afib, DM II, HTN . Patient will get pre op clearance concerning afib from her director engineering. Patient will hold am oral diabetic medications, but take oral anti HTN meds
[2019-03-04 10:12] LABS: Alanine Aminotransferase 20 units/L (7-56); Albumin 4.2 g/dL (3.9-5); BUN/Creatinine Ratio 19; Blood Urea Nitrogen 17 mg/dL (7-17); Hemolysis Index 16
[~2019-03-12 13:00] MED LIST changes: +NACL 0.9% 1000 ML 1,000 ML IV SCH; +NEURONTIN PO NR; +PEPCID PO NR; -TETRACAINE 0.5% OD PRN; +TRANSDERM-SCOP TD NR; -VIGAMOX OD SCH
[2019-03-16] MEDS ORDERED: VERSED IV ONE (11:19)
[2019-03-16] MEDS ORDERED: NACL 0.9% 1000 ML 1,000 ML ONE ×2 (11:44→15:53)
[2019-03-16] MEDS: NACL 0.9% 1000 ML 1,000 ML IV SCH (11:55)
[2019-03-16] MEDS ORDERED: SUBLIMAZE IV ONE ×2 (11:59→13:00)
[2019-03-16] MEDS ORDERED: NEURONTIN PO NR (12:00)
[2019-03-16] MEDS ORDERED: TRANSDERM-SCOP TD NR (12:00)
[2019-03-16] MEDS ORDERED: PEPCID PO NR (12:00)
[2019-03-16] MEDS ORDERED: BACITRACIN ONE (12:11)
[2019-03-16] MEDS ORDERED: GELFOAM TP ONE ×2 (12:11→13:08)
[2019-03-16] MEDS ORDERED: DEPO-Medrol ONE (12:11)
[2019-03-16] MEDS ORDERED: NACL 0.9% 250ML 250 ML ONE (12:16)
[2019-03-16] MEDS ORDERED: XYLOCAINE 1%/ EPI 1:100,000 INFILTRATI ONE ×3 (12:16→13:08)
[2019-03-16] MEDS ORDERED: MARCAINE 0.5% INFILTRATI ONE ×2 (12:16→13:08)
[2019-03-16] MEDS ORDERED: ANCEF/STERILE WATER 2 GM/20 ML IV NR (12:49)
[2019-03-16] MEDS ORDERED: DILAUDID ONE (12:55)
[2019-03-16] MEDS ORDERED: DIPRIVAN 10 MG/ML IV ONE (12:55)
[2019-03-16] MEDS ORDERED: DEPO-Medrol INTRA-ARTI ONE (13:08)
[2019-03-16] MEDS ORDERED: [UNRECOGNIZED DRUG - OTHER] TP ONE (13:08)
[2019-03-16] MEDS ORDERED: NACL 0.9% IR ONE (13:08)
[2019-03-16] MEDS ORDERED: NACL 0.9% 250ML IR ONE (13:08)
[2019-03-16] MEDS ORDERED: BACITRACIN IR ONE (13:08)
[2019-03-16] MEDS ORDERED: ZEMURON IV ONE (15:53)
[2019-03-16] MEDS ORDERED: XYLOCAINE MPF 2% ONE (15:53)
[2019-03-16] MEDS ORDERED: FLEXERIL PO PRN (16:47)
[2019-03-16] MEDS ORDERED: TYLENOL PO PRN (16:47)
[2019-03-16] MEDS ORDERED: TORADOL IV PRN (16:47)
[2019-03-16] MEDS ORDERED: PHENERGAN PR PRN (16:47)
[2019-03-16] MEDS ORDERED: CATAPRES PO PRN (16:47)
[2019-03-16] MEDS ORDERED: CEPACOL X STRENGTH MM PRN (16:47)
[2019-03-16] MEDS ORDERED: NARCAN 0.4 MG/1 ML IV PRN (16:47)
[2019-03-16] MEDS ORDERED: REGLAN IV PRN (16:47)
[2019-03-16] MEDS ORDERED: AMBIEN PO PRN (16:47)
[2019-03-16] MEDS ORDERED: MORPHINE IV PRN (16:47)
[2019-03-16] MEDS ORDERED: ZOFRAN IV PRN ×2 (16:47→17:04)
[2019-03-16] MEDS ORDERED: SUBLIMAZE ONE (16:56)
[2019-03-16] MEDS ORDERED: BENADRYL PO PRN (16:58)
[2019-03-16] MEDS ORDERED: NACL 0.9% 1000 ML 1,000 ML IV SCH (17:00)
[2019-03-16] MEDS ORDERED: ANCEF/NS 1 GM/50 ML 1 GM/50 ML BAG IV SCH (17:00)
[2019-03-16] MEDS ORDERED: SUBLIMAZE IV PRN (17:04)
--- NOTE | 2019-03-16 17:06 | Post Anesthesia Evaluation ---
- Post Anesthesia Evaluation Patient Participated: Yes Airway Patent: Yes Stable Respiratory Function: Yes Nausea/Vomiting: No Temp > 96.8F: Yes Pain Manageable: Yes Adequeate Hydration: Yes Anesthesia Complications: No Block Receding Appropriately: Not Applicable Patient on Ventilator: No
--- NOTE | 2019-03-16 17:07 | Operative Report ---
Operative Report Operative Report: DATE OF PROCEDURE: 03/16/2019 PREOPERATIVE DIAGNOSIS: Lumbar spondylolisthesis with stenosis and neurogenic cl audication POSTOPERATIVE DIAGNOSIS: Same OPERATIVE PROCEDURE: 1. L3 4 laminectomy for decompression of thecal sac 2. Nonsegmental instrumentation L3 4 using cortical screws from [place] 3. Facet joint arthrodesis using autograft 4. Intraoperative platelet plasmapheresis SURGEON: Marlys Hodges MD HOME MANAGEMENT SUPERVISOR: ANESTHESIA: General endotracheal anesthesia EBL: 150 mL INDICATIONS FOR PROCEDURE: 63-year-old female presented to the office with a chief complaint of passively worsening back and leg pain. Pain has been present for several years despite conservative care to include physical therapy injections and oral pain medications. She is neurologically intact on exam MRI of the lumbar spine showed severe stenosis at the L3 4 level clumping of the nerve roots. Risk and benefits of the surgery were explained to the patient indicated she understood and wished to proceed with surgery. FINDINGS: Severe thickening of the ligamentum flavum at L3 4 with compression of the thecal sac PROCEDURE: Patient was brought to the operating room on her gurney underwent general endotracheal anesthesia without complication. After all lines were placed. Timeout was taken she was turned in the prone position and secured. Posterior lumbar spine was then prepped and draped in sterile fashion. Area of intended incision was infiltrated with 1% lidocaine with epinephrine using a 10 blade. Paraspinous muscles were elevated off of the lamina bilaterally using monopolar cautery. The correct levels verified using fluoroscopy and a high- speed drill was used to create pilot plant operator helper holes for the hand-held Beatris drill medial to lateral direction within the facet joint. This was introduced into the facet joints of L3 bilaterally and L4 bilaterally. Attention was turned to the laminectomy at L3 which was completed using a [place] rongeur and [place] rongeur. The thecal sac was noted to be decompressed the facet joints were decorticated and only graft was placed. A oneida was then sized and fit for the cortical screws and end caps placed and torqued to the appropriate strength. The paraspinous muscles were elevated 1% lidocaine with epinephrine in our digit which plasma was laid over the entire wound margins was turned to closing. Muscles were reapproximated using 0 Vicryl to apartment finally Monocryl for the skin. The lap sponge and needle count was correct at the end of the procedure, the patient tolerated the procedure well and was taken to the recovery room extubated and in good condition.
[2019-03-16] MEDS ORDERED: PERCOCET 5/325 PO PRN (17:11)
[2019-03-16] MEDS: DILAUDID IV PRN ×2 (19:30→22:09)
[2019-03-16] MEDS: ANCEF/NS 1 GM/50 ML 1 GM/50 ML BAG IV SCH (21:47)
[2019-03-16] MEDS ORDERED: NON-FORMULARY (Esomeprazole Magnesium [Nexium] 40 MG) PO SCH (22:00)
[2019-03-16] MEDS: DIABETA PO SCH (22:13)
[2019-03-16] MEDS: TOPROL XL PO SCH (22:13)
[2019-03-16] MEDS: GLUCOPHAGE PO SCH (22:13)
[2019-03-16] MEDS: COLACE PO SCH (22:13)
[2019-03-16] MEDS: PROTONIX PO SCH (22:14)
[2019-03-16] MEDS: PAXIL PO SCH (22:57)
[2019-03-17] MEDS: DILAUDID IV PRN ×2 (05:12→13:21)
[2019-03-17] MEDS: ANCEF/NS 1 GM/50 ML 1 GM/50 ML BAG IV SCH (05:19)
[2019-03-17] MEDS: NACL 0.9% 1000 ML 1,000 ML IV SCH (05:22)
--- NOTE | 2019-03-17 07:39 | XRay Report ---
LUMBAR SPINE, ONE VIEW History: Spondylolisthesis, L3-4 lumbar laminectomy pedicle screws. Findings: Fluoroscopy was provided by radiology during a procedure by neurosurgery. A single lateral fluoroscopic spot shot of the lumbar spine is presented extending from L2-S1. Transpedicular screws are identified at L3 and L4 levels. Alignment appears anatomic on the single lateral image. Mild spondylosis is noted. Impression: Posterior fusion of L3-4 as described. Please correlate with the procedural report as needed.
[2019-03-17] MEDS: GLUCOPHAGE PO SCH ×2 (09:43→17:29)
[2019-03-17] MEDS: NORCO 7.5/325 PO PRN ×2 (09:43→17:31)
[2019-03-17] MEDS: LASIX PO SCH (09:43)
[2019-03-17] MEDS: DIABETA PO SCH ×2 (09:44→17:30)
[2019-03-17] MEDS: ZESTRIL PO SCH (09:44)
[2019-03-17] MEDS: TRADJENTA PO SCH (09:50)
[2019-03-17] MEDS ORDERED: NON-FORMULARY (Sitagliptin Phosphate [Januvia] 100 MG) PO SCH (10:00)
[2019-03-17] MEDS ORDERED: NON-FORMULARY (Benazepril Hcl [Lotensin] 20 MG) PO SCH (10:00)
[2019-03-17] MEDS ORDERED: BENADRYL PO PRN (16:38)
--- NOTE | 2019-03-17 16:45 | Discharge Summary ---
Providers - Providers Date of Admission: 03/16/19 10:53 Attending physician: ZACHARIAH STANLEY 03/16/19 16:58 Physical Therapy Evaluation and Treat [CONS] Routine Comment: Reason For Exam: post operative fusion Primary care physician: TAD DAVIS Hospitalization Reason for admission: post operative care Hospital course: woked with PT. Blood glucose level is in the 200's and pain requiring pain medicine the first 24 hours. Disposition: - TO HOME OR SELFCARE Core Measure Documentation - Palliative Care Palliative Care/ Comfort Measures: Not Applicable - Core Measures Any of the following diagnoses?: none Exam - Constitutional Vitals: Temp Pulse Resp BP Pulse Ox 99.6 F 71 18 112/59 95 03/17/19 08:00 03/17/19 08:00 03/17/19 08:00 03/17/19 08:00 03/17/19 04:23 Plan Activity: advance as tolerated, avoid flexion Weight Bearing Status: Weight Bear as Tolerated Diet: low carbohydrate Wound: open to air Follow up with: TAD DAVIS MD [Primary Care Provider] - 7 Days ZACHARIAH STANLEY MD [Staff Physician] - 14 Days Prescriptions: Cyclobenzaprine [Flexeril 10 MG TAB] 10 mg PO Q8H PRN #60 tablet PRN Reason: Muscle Spasm HYDROcodone/APAP 7.5-325 [[place] 7.5-325 mg TAB] 1 each PO Q4H PRN #30 tablet PRN Reason: Pain, Moderate (4-6)
[2019-03-17] MEDS ORDERED: GLUCOPHAGE PO SCH (17:00)
[2019-03-17] MEDS: PROTONIX PO SCH (22:06)
[2019-03-17] MEDS: COLACE PO SCH (22:06)
[2019-03-17] MEDS: PAXIL PO SCH (22:07)
[2019-03-17] MEDS: TOPROL XL PO SCH (22:08)
[2019-03-18] MEDS: NORCO 7.5/325 PO PRN (09:30)
[2019-03-18] MEDS: GLUCOPHAGE PO SCH (09:31)
[2019-03-18] MEDS: TRADJENTA PO SCH (09:32)
[2019-03-18] MEDS: DIABETA PO SCH (09:33)
[2019-03-18] MEDS: ZESTRIL PO SCH (09:33)
[2019-03-18 10:17] VITALS: BP 133/88
[2019-03-18] MEDS: LASIX PO SCH (15:37)
== END 2019-03-18 16:50 | disposition home health service (06) | DRG 460 ==
LOC: 3A 03-16 10:53 → 3B-SURG 03-16 17:13
PROVIDERS: ADMIT Neurological Surgery; ATTEND Neurological Surgery
PROC: 0SG0071 Fusion of Lumbar Vertebral Joint with Autologous Tissue Substitute, Posterior Approach, Posterior Column, Open Approach (ICD-10-PCS; principal; 2019-03-16)
PROC: 00NY0ZZ Release Lumbar Spinal Cord, Open Approach (ICD-10-PCS; 2019-03-16)
DX: M48.062 Spinal stenosis, lumbar region with neurogenic claudication (principal); E66.3 Overweight; M43.16 Spondylolisthesis, lumbar region; I48.91 Unspecified atrial fibrillation; K21.9 Gastro-esophageal reflux disease without esophagitis; I10 Essential (primary) hypertension; E78.5 Hyperlipidemia, unspecified; J45.909 Unspecified asthma, uncomplicated; Z88.8 Allergy status to other drugs, medicaments and biological substances; Z88.5 Allergy status to narcotic agent; Z86.718 Personal history of other venous thrombosis and embolism; Z82.49 Family history of ischemic heart disease and other diseases of the circulatory system; Z80.3 Family history of malignant neoplasm of breast; Z83.3 Family history of diabetes mellitus; Z90.710 Acquired absence of both cervix and uterus; Z79.84 Long term (current) use of oral hypoglycemic drugs; Z79.899 Other long term (current) drug therapy; Z68.30 Body mass index [BMI] 30.0-30.9, adult
CPT/HCPCS: 36415; 72020; 80053; 82962; 85025; 86850; 86900; 86901; G0378; A4649; C1713; J0690; J1030; J1170; J2250; J2405; J2704; J3010; J7030; J7050

== ENCOUNTER 2019-04-16 15:26 | Outpatient (CLI) | payer BC ==
--- NOTE | 2019-04-16 20:19 | XRay Report ---
PROCEDURE: XR SPINE LUMBOSACRAL 2-3V TECHNIQUE: Frontal and lateral views lumbar spine HISTORY: SPONDYLOLISTHESIS LUMBAR REGION, STANDING/UPRIGHT, AP LATERAL COMPARISONS: MRI lumbar spine dated January 06, 2019 FINDINGS: In the interval patient has undergone a posterior fusion at L3-L4 with retained hardware. Again noted is the grade 1 anterolisthesis of L3 on L4. There is mild levocurvature of the lumbar spine similar in appearance to the previous MRI. The vertebral heights are maintained. There is loss of height of the L4-L5 disc as was demonstrated on the previous MRI. The paraspinous soft tissues are unremarkable. IMPRESSION: 1. Status post L3-L4 posterior fusion with retained hardware. 2. Grade 1 anterolisthesis L3 on L4, levocurvature lumbar spine and evidence of degenerative disc kaya nge L4-L5 level all similar in appearance to the previous MRI dated January 06, 2019. This document is electronically signed by Gia Escobar MD., April 16 2019 08:17:02 PM ET
== END 2019-04-16 15:27 | disposition home or self-care (01) ==
LOC: XRAY 15:26
PROVIDERS: ATTEND Neurological Surgery
DX: M43.16 Spondylolisthesis, lumbar region (principal); M47.816 Spondylosis without myelopathy or radiculopathy, lumbar region; M43.8X6 Other specified deforming dorsopathies, lumbar region; M43.26 Fusion of spine, lumbar region; E78.00 Pure hypercholesterolemia, unspecified; I10 Essential (primary) hypertension; J45.909 Unspecified asthma, uncomplicated; K21.9 Gastro-esophageal reflux disease without esophagitis; E11.9 Type 2 diabetes mellitus without complications; Z90.710 Acquired absence of both cervix and uterus
CPT/HCPCS: 72100

== ENCOUNTER 2019-06-01 08:54 | Outpatient (CLI) | payer BC ==
[2019-06-01 09:40] LABS: Alanine Aminotransferase 21 units/L (7-56); Albumin 4.2 g/dL (3.9-5); BUN/Creatinine Ratio 15; Blood Urea Nitrogen 15 mg/dL (7-17); Calcium 9.3 mg/dL (8.4-10.2); Chol/HDL Ratio 5.02 %; HDL Cholesterol 36 mg/dL (40-59); Hemolysis Index 3; LDL Cholesterol,Direct 123 mg/dL (50-130)
== END 2019-06-01 08:55 | disposition home or self-care (01) ==
LOC: LAB 08:54
PROVIDERS: ATTEND Internal Medicine
DX: E11.40 Type 2 diabetes mellitus with diabetic neuropathy, unspecified (principal); E78.5 Hyperlipidemia, unspecified; I10 Essential (primary) hypertension; E78.00 Pure hypercholesterolemia, unspecified; J45.909 Unspecified asthma, uncomplicated; K21.9 Gastro-esophageal reflux disease without esophagitis; Z90.710 Acquired absence of both cervix and uterus
CPT/HCPCS: 36415; 80053; 80061

== ENCOUNTER 2019-07-08 08:53 | Outpatient (CLI) | payer BC ==
--- NOTE | 2019-07-08 14:56 | Mammography Report ---
DIGITAL SCREENING MAMMOGRAM WITH CAD, 07/08/2019 INDICATION: Routine screening mammography. History of bilateral reduction mammoplasty in 1979. TECHNIQUE: Digital bilateral 2D mammography was obtained in the craniocaudal and mediolateral obliq ue projections. This examination was interpreted with the benefit of Computer-Aided Detection analysi s. COMPARISON: 03/20/2018 FINDINGS: Breast Density: The breasts are heterogeneously dense, which may obscure small masses. There is no evidence of dominant mass, suspicious calcifications or architectural distortion in eithe r breast. IMPRESSION: No mammographic evidence of malignancy. Follow up recommendation: Routine yearly BI-RADS Category 1: Negative. A "normal" or negative report should not discourage follow up or biopsy of a clinically significant f inding. A written summary of these findings will be mailed to the patient. The patient will be entered into a mammography reporting system which will generate a reminder letter for the patient's next appointmen t at the appropriate interval. The [employer] recommends yearly mammograms starting at age 40 and continuing as l jhony as a woman is in good health. Breast MRI is recommended for women with an approximate 20-25% or greater lifetime risk of breast cancer, including women with a strong family history of breast or ova malik cancer or who have been treated for Hodgkin's disease. Signer Name: Joe Pierce MD Signed: 07/08/2019 2:52 PM Workstation Name: [id number]
== END 2019-07-08 08:54 | disposition home or self-care (01) ==
LOC: MAMMO 08:53
PROVIDERS: ATTEND Internal Medicine
DX: Z12.31 Encounter for screening mammogram for malignant neoplasm of breast (principal); E78.00 Pure hypercholesterolemia, unspecified; I10 Essential (primary) hypertension; K21.9 Gastro-esophageal reflux disease without esophagitis; E11.9 Type 2 diabetes mellitus without complications
CPT/HCPCS: 77067

== ENCOUNTER 2021-04-06 10:11 | Outpatient (CLI) | payer MEDICARE ==
--- NOTE | 2021-04-06 12:53 | Ultrasound Report ---
ULTRASOUND RENAL INDICATION / CLINICAL INFORMATION: ELEVATED SERUM CREATININE. COMPARISON: None available. FINDINGS: RIGHT KIDNEY: Size (in cm): 10.7 - Echogenicity: Normal. - Cortical Thickness: Normal. - Hydronephrosis: None. - Cyst or mass: No significant abnormality. - Stones: None seen. LEFT KIDNEY: Size (in cm): 10.9 - Echogenicity: Normal. - Cortical Thickness: Normal. - Hydronephrosis: None. - Cyst or mass: No significant abnormality. - Stones: None seen. URINARY BLADDER: No significant abnormality. FREE FLUID: None. ADDITIONAL FINDINGS: None. IMPRESSION: 1. No significant abnormality. Signer Name: Reed Lovelace MD Signed: 04/06/2021 12:48 PM Workstation Name: [id number]
== END 2021-04-06 10:12 | disposition home or self-care (01) ==
LOC: US 10:11
PROVIDERS: ATTEND Internal Medicine
DX: R79.89 Other specified abnormal findings of blood chemistry (principal); N18.2 Chronic kidney disease, stage 2 (mild)
CPT/HCPCS: 76770

== ENCOUNTER 2021-05-31 14:21 | Outpatient (CLI) | payer MEDICARE ==
--- NOTE | 2021-05-31 15:29 | XRay Report ---
Left hip 2 views INDICATION: Left hip pain IMPRESSION: The left hip is intact. Mild degenerative changes. Mild osteopenia. Signer Name: Enoch Ortiz MD Signed: 05/31/2021 3:25 PM Workstation Name: [email or web address]
== END 2021-05-31 14:22 | disposition home or self-care (01) ==
LOC: XRAY 14:21
PROVIDERS: ATTEND Internal Medicine
DX: M16.12 Unilateral primary osteoarthritis, left hip (principal); M85.852 Other specified disorders of bone density and structure, left thigh

== ENCOUNTER 2021-07-21 10:13 | Outpatient (CLI) | payer MEDICARE ==
--- NOTE | 2021-07-21 11:08 | Mammography Report ---
DIGITAL SCREENING MAMMOGRAM WITH CAD, 07/21/2021 CLINICAL INFORMATION / INDICATION: Routine screening mammography. Z12.31 TECHNIQUE: Digital bilateral 2D mammography was obtained in the craniocaudal and mediolateral obliqu e projections. This examination was interpreted with the benefit of Computer-Aided Detection analysis . COMPARISON: 03/04/2014 through 07/20/2020. FINDINGS: Breast Density: There are scattered areas of fibroglandular density. No dominant mass, suspicious calcifications, or architectural distortion in either breast. There are bilateral reduction changes. Asymmetric breast tissue in the left subareolar region and mary ign-appearing nodularity in the right breast inferomedially are stable. IMPRESSION: No mammographic evidence of malignancy. Follow up recommendation: Routine yearly BI-RADS Category 2: Benign. A "normal" or negative report should not discourage follow up or biopsy of a clinically significant f inding. A written summary of these findings will be mailed to the patient. The patient will be entered into a mammography reporting system which will generate a reminder letter for the patient's next appointmen t at the appropriate interval. The [employer] recommends yearly mammograms starting at age 40 and continuing as l jhony as a woman is in good health. Breast MRI is recommended for women with an approximate 20-25% or greater lifetime risk of breast cancer, including women with a strong family history of breast or ova malik cancer or who have been treated for Hodgkin's disease. Signer Name: Devonte Man MD Signed: 07/21/2021 11:04 AM Workstation Name: [email or web address]
== END 2021-07-21 10:14 | disposition home or self-care (01) ==
LOC: MAMMO 10:13
PROVIDERS: ATTEND Internal Medicine
DX: Z12.31 Encounter for screening mammogram for malignant neoplasm of breast (principal); N64.89 Other specified disorders of breast
CPT/HCPCS: 77067

== ENCOUNTER 2022-07-23 10:12 | Outpatient (CLI) | payer MEDICARE ==
--- NOTE | 2022-07-24 17:21 | Mammography Report ---
DIGITAL SCREENING MAMMOGRAM WITH CAD, 07/23/2022 CLINICAL INFORMATION / INDICATION: Routine screening mammography. SCREENING MAMMOGRAM Z12.31 TECHNIQUE: Digital bilateral 2D mammography was obtained in the craniocaudal and mediolateral obliqu e projections. This examination was interpreted with the benefit of Computer-Aided Detection analysis . COMPARISON: 07/21/2021, 07/20/2020 FINDINGS: Breast Density: There are scattered areas of fibroglandular density. No dominant mass, suspicious calcifications, or architectural distortion in either breast. Bilateral reduction mammoplasty. Overall, no interval change. IMPRESSION: No mammographic evidence of malignancy. Follow up recommendation: Routine yearly screening mammogram. BI-RADS Category 2: BENIGN. A "normal" or negative report should not discourage follow up or biopsy of a clinically significant f inding. A written summary of these findings will be mailed to the patient. The patient will be entered into a mammography reporting system which will generate a reminder letter for the patient's next appointmen t at the appropriate interval. The [employer] recommends yearly mammograms starting at age 40 and continuing as l jhony as a woman is in good health. Breast MRI is recommended for women with an approximate 20-25% or greater lifetime risk of breast cancer, including women with a strong family history of breast or ova malik cancer or who have been treated for Hodgkin's disease. Signer Name: Lara Thorne MD Signed: 07/24/2022 5:17 PM Workstation Name: [email or web address]
== END 2022-07-23 10:13 | disposition home or self-care (01) ==
LOC: MAMMO 10:12
PROVIDERS: ATTEND Internal Medicine
DX: Z12.31 Encounter for screening mammogram for malignant neoplasm of breast (principal); N64.89 Other specified disorders of breast
CPT/HCPCS: 77067